=== PATIENT | male | born 1950 | race Caucasian/White ===

== ENCOUNTER → 2022-03-07 09:54 | Outpatient (BNVA) | payer MEDICARE, SELFPAY | PROVIDERS: PCP Internal Medicine; Visit Provider Psychiatry & Neurology Neurology | DX: G40.909 Epilepsy, unspecified, not intractable, without status epilepticus (principal); G93.81 Temporal sclerosis; G47.9 Sleep disorder, unspecified | CPT/HCPCS: 99202 ==

== ENCOUNTER → 2022-07-11 09:21 | Outpatient (BNVA) | payer MEDICARE, SELFPAY | PROVIDERS: PCP Internal Medicine; Visit Provider Psychiatry & Neurology Neurology | DX: G40.909 Epilepsy, unspecified, not intractable, without status epilepticus (principal); G93.81 Temporal sclerosis; G47.9 Sleep disorder, unspecified | CPT/HCPCS: 99212 ==

== ENCOUNTER → 2022-08-04 09:29 | Outpatient (REF) | payer MEDICARE, SELFPAY | LOC: HO.SL 09:29 | PROVIDERS: Visit Provider Psychiatry & Neurology Neurology | DX: G47.10 Hypersomnia, unspecified (principal); R06.83 Snoring | CPT/HCPCS: 95806 ==

== ENCOUNTER → 2022-10-13 08:59 | Outpatient (BNVA) | payer MEDICARE, SELFPAY | PROVIDERS: PCP Internal Medicine; Visit Provider Psychiatry & Neurology Neurology | DX: G40.909 Epilepsy, unspecified, not intractable, without status epilepticus (principal); G93.81 Temporal sclerosis; G47.33 Obstructive sleep apnea (adult) (pediatric); Z99.89 Dependence on other enabling machines and devices | CPT/HCPCS: 99212 ==

== ENCOUNTER 2023-02-16 10:23 | Outpatient (AMB) | payer MEDICARE, SELFPAY ==
--- NOTE | 2023-02-16 10:26 | A.OFFVIS_ITS ---
Intake Vital Signs 02/16/23 10:32 Weight 184 lb 4 oz BP 122/88 Blood Pressure Location Rt brachial Position Sitting Pulse 100 Pulse Source Pulse Oximeter Pulse Oximetry (%) 96 Oxygen Delivery Method Room Air Intake Visit Reasons: 4m follow up Seizure disorder-lvm Intake Note: F/U Seizures Automobile Parker Required: No Allergies No Known Allergies Allergy (Verified 02/16/23 10:26) Medication List - Last Reconciled 02/16/23 by Lenora Dillon MD levetiracetam 750 mg PO BID mecobalamin (vitamin B12) 1,000 mcg PO DAILY melatonin 5 mg PO BEDTIME PRN HPI HPI Comments History of Present Illness Details 72y/o male comes for follow up of seizur e disorder.No seizures last seizure was 18 mths ago. 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 He drinks rarely - every 3 weeks . everytime he drinks has an episode of confusion. when he was drinking he could not sleep and he had memory issues His sleep study is c/w severe sleep apnea 59/hr O2 willa 85%.He is on CPAP and he is complaint and feels better. His first seizure was in 1969- unresponsiveness and ? complex partial seizure with retrograde amnesia. He is not clear if he was started on treatment. He was told that it related to head injury at age 8 . SInce then he has had 5-6 seizures and all were relates to patient stopping his antiepileptic. He is on levetiracetam 750mg bid now. His last seizure was in July 2021 - stopped meds in Apr 2021. He has prolonged short term memory issues after his seizures. He drives now. He lives with his son and a friend. He has short term memory issues. [facility] Medical History Anxiety ALEXIA on CPAP Hypersomnia Snoring Mesial temporal sclerosis Seizure disorder Hyperlipidemia GERD (gastroesophageal reflux disease) Depression Surgical History H/O colonoscopy Family History Family/Other Blindness Cataract Glaucoma Macular degeneration Strabismus Family/Other No problems noted. Social History Alcohol intake: never Patient Tobacco Use Status: Never used Tobacco Use of substances other than those prescribed or required for medical reasons: No Physical Exam Vital Signs: Last Vital Signs Pulse 100 02/16/23 10:32 BP 122/88 02/16/23 10:32 Pulse Ox 96 02/16/23 10:32 Oxygen Delivery Method Room Air 02/16/23 10:32 Const Orientation/consciousness: patient oriented x3 Eyes Pupils: Equal, round and reactive pupils present Neuro General: patient oriented x3, No gait normal, tone normal, moves all extremities and no focal motor deficits Cranial nerves: Yes CN's II-XII intact bilaterally, Yes Equal, round and reactive pupils present, Yes Bilaterally intact EOM present, Yes Nystagmus not present, Yes Normal facial strength present, Yes Midline tongue present, Yes Symmetric palate elevation present and Yes Ability to bilaterally elevate shoulders present Cognition (Neuro): normal cognition (MMSE 28/30) Gait exam (Neuro): Normal gait present Assessment & Plan Assessment & Plan (1) Seizure disorder: Code(s): G40.909 - Epilepsy, unspecified, not intractable, without status epilepticus (2) Mesial temporal sclerosis: Code(s): G93.81 - Temporal sclerosis (3) ALEXIA on CPAP: Comment: AHI 59/hr O2 willa 85% Code(s): G47.33 - Obstructive sleep apnea (adult) (pediatric); Z99.89 - Dependence on other enabling machines and devices Plan Discussed compliance with medications Levetiracetam 750mg bid Compliance stressed with CPAP and medications Suggested therapy for anxiety- declines Coding Level of Care Code Est Pt Level 4 (25283) Diagnoses Seizure disorder G40.909 Mesial temporal sclerosis G93.81 ALEXIA on CPAP G47.33; Z99.89
[2023-02-16 10:32] VITALS: BP 122/88; PULSE 100; O2SAT 96
== END 2023-02-16 10:48 | disposition home or self-care (01) ==
PROVIDERS: Visit Provider Psychiatry & Neurology Neurology
DX: G40.909 Epilepsy, unspecified, not intractable, without status epilepticus (principal); G93.81 Temporal sclerosis; G47.33 Obstructive sleep apnea (adult) (pediatric); Z99.89 Dependence on other enabling machines and devices
CPT/HCPCS: 99214

== ENCOUNTER → 2023-02-16 10:23 | Outpatient (BNVA) | payer MEDICARE, SELFPAY | PROVIDERS: Visit Provider Psychiatry & Neurology Neurology | DX: G40.909 Epilepsy, unspecified, not intractable, without status epilepticus (principal); G93.81 Temporal sclerosis; G47.33 Obstructive sleep apnea (adult) (pediatric); Z99.89 Dependence on other enabling machines and devices | CPT/HCPCS: 99212 ==

== ENCOUNTER 2024-01-19 08:58 | Outpatient (AMB) | payer MEDICARE, SELFPAY ==
--- NOTE | 2024-01-19 09:00 | MHC.OFFVIS ---
Vital Signs 01/19/24 09:02 Height 5 ft 6 in Weight 178 lb 6 oz BMI 28.8 BP 122/78 Blood Pressure Location Rt brachial Position Sitting Respiration 17 Pulse 71 Pulse Source Pulse Oximeter Pulse Oximetry (%) 97 Oxygen Delivery Method Room Air Intake Visit Reasons: Follow Up- Confirmed Intake Note: Pt presents to the office for a one year follow up for Mesial temporal sclerosis. Beamer Operator Required: No Allergies No Known Allergies Allergy (Verified 01/19/24 09:00) Medication List - Last Reconciled 01/19/24 by Lenora Dillon MD amlodipine 5 mg PO DAILY atorvastatin 80 mg PO DAILY cholecalciferol (vitamin D3) 50 mcg PO DAILY finasteride 5 mg PO DAILY levetiracetam 750 mg PO BID mecobalamin (vitamin B12) 1,000 mcg PO DAILY melatonin 5 mg PO BEDTIME PRN metoprolol succinate ER 25 mg PO BID tamsulosin 0.4 mg PO DAILY HPI Comments Details: 73y/o male comes for follow up of seizure disorder.No seizures since last visit 11 months ago He is compliant with medications. 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 everytime he drinks has an episode of confusion. when he was drinking he could not sleep and he had memory issues His sleep study is c/w severe sleep apnea 59/hr O2 willa 85%.He is on CPAP and he is complaint and feels better. His first seizure was in 1969- unresponsiveness and ? complex partial seizure with retrograde amnesia. He is not clear if he was started on treatment. He was told that it related to head injury at age 8 . SInce then he has had 5-6 seizures and all were relates to patient stopping his antiepileptic. He is on levetiracetam 750mg bid now. His last seizure was in July 2021 - stopped meds in Apr 2021. He has prolonged short term memory issues after his seizures. He drives now. He lives with his son and a friend. He has short term memory issues. [facility] Medical History (Updated 01/19/24 @ 09:27 by Lenora Dillon MD) Renal failure Anxiety ALEXIA on CPAP Hypersomnia Snoring Mesial temporal sclerosis Seizure disorder Hyperlipidemia GERD (gastroesophageal reflux disease) Depression Surgical History H/O colonoscopy Family History Family/Other Blindness Cataract Glaucoma Macular degeneration Strabismus Family/Other No problems noted. Social History Alcohol intake: never Patient Tobacco Use Status: Never used Tobacco Physical Exam Vital Signs: Last Vital Signs Pulse 71 01/19/24 09:02 Resp 17 01/19/24 09:02 BP 122/78 01/19/24 09:02 Pulse Ox 97 01/19/24 09:02 Oxygen Delivery Method Room Air 01/19/24 09:02 BMI result Body Mass Index 28.8 Const Orientation/consciousness: patient oriented x3 Eyes Pupils: Equal, round and reactive pupils present Neuro General: patient oriented x3, No gait normal, tone normal, moves all extremities and no focal motor deficits Cranial nerves: Yes CN's II-XII intact bilaterally, Yes Equal, round and reactive pupils present, Yes Bilaterally intact EOM present, Yes Nystagmus not present, Yes Normal facial strength present, Yes Midline tongue present, Yes Symmetric palate elevation present and Yes Ability to bilaterally elevate shoulders present Cognition (Neuro): normal cognition (MMSE 28/30) Gait exam (Neuro): Normal gait present Assessment & Plan Assessment & Plan (1) Seizure disorder: Code(s): G40.909 - Epilepsy, unspecified, not intractable, without status epilepticus Category: Medical (2) Mesial temporal sclerosis: Code(s): G93.81 - Temporal sclerosis Category: Medical (3) ALEXIA on CPAP: Comment: AHI 59/hr O2 willa 85% Code(s): G47.33 - Obstructive sleep apnea (adult) (pediatric); Z99.89 - Dependence on other enabling machines and devices Category: Medical Plan Discussed compliance with medications Levetiracetam 750mg bid Compliance stressed with CPAP and medications Suggested therapy for anxiety- declines Medications: Refilled levetiracetam 750 mg PO BID 180 tabs 7RF Coding Level of Care Code Est Pt Level 4 (15112) Complex EM visit Add On G2211 Diagnoses Seizure disorder G40.909 Mesial temporal sclerosis G93.81 ALEXIA on CPAP G47.33; Z99.89
[2024-01-19 09:02] VITALS: BP 122/78; PULSE 71; RESP 17; O2SAT 97; BMI 28.8
== END 2024-01-19 09:33 | disposition home or self-care (01) ==
PROVIDERS: PCP Internal Medicine; Visit Provider Psychiatry & Neurology Neurology
DX: G40.909 Epilepsy, unspecified, not intractable, without status epilepticus (principal); G93.81 Temporal sclerosis; G47.33 Obstructive sleep apnea (adult) (pediatric); Z99.89 Dependence on other enabling machines and devices
CPT/HCPCS: 99214; G2211

== ENCOUNTER → 2024-01-19 08:58 | Outpatient (BNVA) | payer MEDICARE, SELFPAY | PROVIDERS: PCP Internal Medicine; Visit Provider Psychiatry & Neurology Neurology | DX: G40.909 Epilepsy, unspecified, not intractable, without status epilepticus (principal); G93.81 Temporal sclerosis; G47.33 Obstructive sleep apnea (adult) (pediatric); Z99.89 Dependence on other enabling machines and devices | CPT/HCPCS: 99212 ==

== ENCOUNTER 2025-01-16 08:56 | Outpatient (AMB) | payer MEDICARE, SELFPAY ==
--- NOTE | 2025-01-16 09:01 | MHC.OFFVIS ---
Vital Signs 01/16/25 09:02 Height 5 ft 6 in Weight 191 lb 6 oz BMI 30.9 BP 118/76 Blood Pressure Location Rt brachial Position Sitting Pulse 108 H Pulse Source Pulse Oximeter Pulse Oximetry (%) 96 Oxygen Delivery Method Room Air Intake Visit Reasons: Follow Up Intake Note: Follow up Mesial temporal sclerosis and Seizures Flight Attendant/Inflight Manager Required: No Accompanied by: Son Allergies No Known Allergies Allergy (Verified 01/16/25 09:02) Medication List - Last Reconciled 01/16/25 by Lenora Dillon MD amlodipine 5 mg PO DAILY atorvastatin 80 mg PO DAILY cholecalciferol (vitamin D3) 50 mcg PO DAILY finasteride 5 mg PO DAILY levetiracetam 750 mg PO BID mecobalamin (vitamin B12) 1,000 mcg PO DAILY metoprolol succinate ER 25 mg PO BID HPI Comments Details: 74y/o male comes for follow up of seizure disorder.No seizures since last visit .Last seizure was in 2022 He is compliant with medications. 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 everytime he drinks has an episode of confusion. when he was drinking he could not sleep and he had memory issues He does not drink anymore His sleep study is c/w severe sleep apnea 59/hr O2 willa 85%.He is on CPAP and he is complaint and feels better. His first seizure was in 1969- unresponsiveness and ? complex partial seizure with retrograde amnesia. He is not clear if he was started on treatment. He was told that it related to head injury at age 8 . SInce then he has had 5-6 seizures and all were related to patient stopping his antiepileptic. He is on levetiracetam 750mg bid now. His last seizure was in July 2021 - stopped meds in Apr 2021. He has prolonged short term memory issues after his seizures. He drives now. He lives with his son and a friend. He has short term memory issues. [facility] Medical History Renal failure Anxiety ALEXIA on CPAP Hypersomnia Snoring Mesial temporal sclerosis Seizure disorder Hyperlipidemia GERD (gastroesophageal reflux disease) Depression Surgical History H/O colonoscopy Family History Family/Other Blindness Cataract Glaucoma Macular degeneration Strabismus Family/Other No problems noted. Social History Alcohol intake: never Patient Tobacco Use Status: Never used Tobacco Physical Exam Vital Signs: Last Vital Signs Pulse 108 H 01/16/25 09:02 BP 118/76 01/16/25 09:02 Pulse Ox 96 01/16/25 09:02 Oxygen Delivery Method Room Air 01/16/25 09:02 BMI result Body Mass Index 30.9 Const Orientation/consciousness: patient oriented x3 Eyes Pupils: Equal, round and reactive pupils present Neuro General: patient oriented x3, No gait normal, tone normal, moves all extremities and no focal motor deficits Cranial nerves: Yes CN's II-XII intact bilaterally, Yes Equal, round and reactive pupils present, Yes Bilaterally intact EOM present, Yes Nystagmus not present, Yes Normal facial strength present, Yes Midline tongue present, Yes Symmetric palate elevation present and Yes Ability to bilaterally elevate shoulders present Gait exam (Neuro): Normal gait present Assessment & Plan Assessment & Plan (1) Seizure disorder: Code(s): G40.909 - Epilepsy, unspecified, not intractable, without status epilepticus Category: Medical (2) Mesial temporal sclerosis: Code(s): G93.81 - Temporal sclerosis Category: Medical (3) ALEXIA on CPAP: Comment: AHI 59/hr O2 willa 85% Code(s): G47.33 - Obstructive sleep apnea (adult) (pediatric); Z99.89 - Dependence on other enabling machines and devices Category: Medical Plan Discussed compliance with medications Levetiracetam 750mg bid Compliance stressed with CPAP and medications Suggested therapy for anxiety- declines Medications: Refilled levetiracetam 750 mg PO BID 180 tabs 7RF Coding Level of Care Code Est Pt Level 4 (99372) Complex EM visit Add On G2211 Diagnoses Seizure disorder G40.909 Mesial temporal sclerosis G93.81 ALEXIA on CPAP G47.33; Z99.89
[2025-01-16 09:02] VITALS: BP 118/76; PULSE 108; O2SAT 96; BMI 30.9
--- OUTSIDE RECORDS SUMMARY | 2025-01-16 09:57 | XMS_ITS | Clinical Summary ---
Author Organization [facility] Address [address] [place] [phone] Phone Care Team Providers Care Beer Coil Cleaner Name Role Phone Dario Medina MD Primary Care Provider [phone] Allergies Active Allergy Reactions Criticality Noted Date Comments Ceftriaxone Rash Low 12/28/2023 Medications amLODIPine (NORVASC) 5 MG tablet Take 1 tablet by mouth 1 (one) time each day 4 Active atorvastatin (LIPITOR) 80 MG tablet Take 1 tablet by mouth 1 (one) time each day 4 Active cyanocobalamin (VITAMIN B-12) 1000 MCG tablet Take 1 tablet by mouth 1 (one) time each day 0 Active levETIRAcetam (KEPPRA) 750 MG tablet Take 750 mg by mouth Active finasteride (PROSCAR) 5 MG tablet Take 1 tablet by mouth at bed time 4 Active metoprolol tartrate 25 MG tablet Take 1 tablet by mouth in the morning and 1 tablet in the evening. 4 Active tamsulosin (FLOMAX) 0.4 MG 24 hr capsule Take 0.4 mg by mouth 1 (one) time each day in the evening 4 Active ergocalciferol 1.25 MG (49117 UT) capsule TAKE 1 CAPSULE BY MOUTH 1 TIME EVERY WEEK 13 capsule 1 5 Active ergocalciferol 1.25 MG (19514 UT) capsule TAKE 1 CAPSULE BY MOUTH 1 TIME EVERY WEEK 13 capsule 1 5 12/31/19 25 Discontinued Active Problems Problem Noted Date Diagnosed Date Anemia in chronic kidney disease 06/19/2024 Vitamin D deficiency, not otherwise specified Chronic kidney disease, stage 4 (severe) 024 Acute nontraumatic kidney injury 09/15/2023 Lower urinary tract obstructive syndrome 024 Hypertensive chronic kidney disease 09/15/2023 Benign prostatic hyperplasia with outflow obstru ction 09/15/2023 Primary hypertension 09/05/2023 Prediabetes 08/16/2021 Overview (09/15/2023): A1c = 6.0 on 08/16/21 Hypertriglyceridemia 02/19/2013 Encounters Date Type Department Care Team Description 12/27/2024 Refill [facility] [address] [place] [phone] Rodrigo Cline MD from Last 3 Months Immunizations Immunization Administration Dates Next Due Influenza (IM) Preservative Free 01/31/2020,02/26 Influenza Split High Dose Pr eservative Free IM 03/04/2022,08/12/2021,03/22/2019,03/14 Influenza, Quadrivalent, Pre servative Free 02/03/2015 Influenza, Trivalent, Adjuvanted 03/06/2024,02/26 Moderna SARS-COV-2 08/06/2021,10/28/2020, 021 Pneumococcal Conjugate 13-Valent 01/31/2020 Pneumococcal Polysaccharide 08/12/2021 Shingrix 03/22/2019 Td, Unspecified 12/03/2001 Tdap 02/19/2013 Social History Tobacco Use Types Packs/Day Years Used Date Smoking Tobacco: Never Smokeless Tobacco: Never Tobacco Cessation:Counseling Given: No Alcohol Use Standard Drinks/Week Comments Yes 1 (1 standard drink = 0.6 oz pur e alcohol) Sex and Gender Information Value Date Recorded Sex Assigned at Not on file Legal Sex Male 7:55 AM EDT Gender Identity Not on file Sexual Orientation Not on file Last Filed Vital Signs Vital Sign Reading Time Taken Comments Blood Pressure 130/78 09/16/2024 3:46 PM EDT Pulse 87 09/16/2024 3:46 PM EDT Temperature - - Respiratory Rate - - Oxygen Saturation 99% 09/16/2024 3:46 PM EDT Inhaled Oxygen Concentration - - Weight 88.8 kg (195 lb 12.8 oz) 09/16/2024 3:46 PM EDT Height - - Body Mass Index - - Plan of Treatment Upcoming Encounters Date Type Department Care Team (Late st Contact Info) Description 02/10/2025 Orders Only [facility] [address] [phone] Rodrigo Cline MD [address] [place] [phone] Chronic kidney disease, stage 4 (severe) (HCC); Hypertensive chronic kidney disease; Benign prostatic hyperplasia with outflow obstruction 03/24/2025 3:15 PM EDT Office Visit [facility] [address] [phone] Rodrigo Cline MD [address] [place] [phone] Health Maintenance Due Date Last Done Comments Colorectal Cancer Screening: Annual FOBT 2001 Colorectal Cancer Screening: Colonoscopy 2001 Colorectal Cancer Screening: Sigmoidoscopy 2001 Influenza Vaccine (#1) 2025 4, 03/04/2022, 08/12/2021, Additional history exists Pneumococcal Vaccine: 50+ Years Completed 08/12/2021, 01/31/2020 Hepatitis B Vaccine Aged Out No longe r eligible based on patient's age to complete this topic Insurance Medicare Medicare [facility] Care Teams Beer Coil Cleaner Relationship Specialty Start Date End Date Dario Medina MD [address] [place] [id number] PCP - General Internal Medicine 08/15/23
--- OUTSIDE RECORDS SUMMARY | 2025-01-16 09:57 | XMS_ITS ---
Author Name [facility] Organization Unknown Care Team Organization Name Specialty Phone Email Start Date End Da te [facility] 01/15/2025 [facility] Dario Medina Primary Care 11/04/2022 01/15/20 24
--- OUTSIDE RECORDS SUMMARY | 2025-01-16 09:57 | XMS_ITS | Clinical Summary ---
Author Organization [address] Address [address] [place] [address] Phone Care Team Providers Care Cost Control Supervisor Name Role Phone Dario Medina MD Primary Care Provider [phone] Allergies Active Allergy Reactions Criticality Noted Date Comments Ceftriaxone Rash Low 12/28/2023 Medications cyanocobalamin (VITAMIN B-12) 1,000 mcg tablet Take 1 tablet (1,000 mcg total) by mouth. 0 Active ergocalciferol (VITAMIN D-2) 1,250 mcg (50,000 unit) capsule Take 1 capsule (50,000 Units total) by mouth 1 (one) time per week. 5 Active levETIRAcetam (KEPPRA) 750 mg tablet Take 1 tablet (750 mg total) by mouth 2 (two) times a day. Active tamsulosin (FLOMAX) 0.4 mg 24 hr capsule Take 1 capsule (0.4 mg total) by mouth. 4 Active amLODIPine (NORVASC) 5 mg tablet TAKE 1 TABLET BY MOUTH DAILY 90 tablet 1 5 Active finasteride (PROSCAR) 5 mg tablet TAKE 1 TABLET BY MOUTH AT BEDTIME 90 tablet 5 Active atorvastatin (LIPITOR) 80 mg tablet TAKE 1 TABLET BY MOUTH DAILY 90 tablet 5 Active metoprolol tartrate (LOPRESSOR) 25 mg tablet Take 1 tablet (25 mg total) by mouth 2 (two) times a day. 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 Nuclear sclerosis 10/06/2014 Hypertriglyceridemia 02/19/2013 Seizure disorder ([facility] V24, [facility] V28) 05/31 Depression 11/25/2008 Anxiety 04/07/2008 Immunizations Name Administration Dates Next Due Influenza Quadrivalent, 0.5m l, preservative free (Fluarix; FluLaval; Fluzone) ages 6mo and older (Afluria) 3yo and older 02/03/2015 Influenza trivalent, 0.5mL ( Fluad) 65yo and older 03/06/2024,03/14/2018 Influenza trivalent, 0.5mL ( Fluzone High-dose) 65yo and older 03/04/2022,08/12/2021,03/22/2019 Influenza trivalent, 0.5mL, preservative free (Fluarix; FluLaval; Fluzone) ages 6mo and older (Afluria) 3 years and older 01/31/2020,03/14/2011 Influenza trivalent, with pr eservative (Fluzone; Afluria) 6mo and older 02/19/2013,05/30/2006 Pneumococcal conjugate 13 va lent (Prevnar 13, PCV13) 2mo and older 01/31/2020 Pneumococcal polysaccharide 23 valent (Pneumovax 23) 2yo and older 08/12/2021 Td, Unspecified 12/03/2001 Tdap Tetanus diptheria acell ular pertussis (Boostrix; Adacel) 7yo and older 02/19/2013 Zoster recombinant (Shingrix ) 19yo and older 03/22/2019 Surgical History Surgery Date Site/Laterality Comments COLONOSCOPY 03/16/09 PROCEDURE: HISTORICAL COLONOSCOPY; COMMENT: normal; repeat in ten years Medical History Medical History Date Comments Esophageal reflux DX:Esophageal reflux Anatomical narrow angle 10/06/2014 DX:Anato mical narrow angle Seizure disorder (CMS/HCC V2 4, CMS/HCC V28) 06/28/2011 DX:Seizure disorder (HCC) Pre-diabetes 08/16/2021 DX:Pre-diabetes; COMMENT: A1c = 6.0 on 08/16/21 Primary hypertension 09/05/2023 DX:Primary hypertension Primary hypertension 09/05/2023 Family History Medical History Relation Name Comments Blindness Neg Hx Cataracts Neg Hx Glaucoma Neg Hx Macular degeneration Neg Hx Strabismus Neg Hx Relation Name Status Comments Father Mother Alive dementia Social History Tobacco Use Types Packs/Day Years Used Date Smoking Tobacco: Never Smokeless Tobacco: Never Tobacco Cessation:Counseling Given: Not Answered Alcohol Use Standard Drinks/Week Comments No 0 (1 standard drink = 0.6 oz pur e alcohol) Sex and Gender Information Value Date Recorded Sex Assigned at Male 07/23/2024 4:44 PM EST Legal Sex Male 3:36 AM EST Gender Identity Male 07/23/2024 4:44 PM EST Sexual Orientation Straight 07/23/2024 4: 44 PM EST Obstetrics History Last Filed Vital Signs Vital Sign Reading Time Taken Comments Blood Pressure 122/76 08/12/2024 10:22 AM EDT Pulse 75 08/12/2024 10:22 AM EDT Temperature 36.6 C (97.9 F) 07/23/2024 4:11 PM EST Respiratory Rate 18 07/23/2024 4:11 PM EST Oxygen Saturation 96% 07/23/2024 4:11 PM EST Inhaled Oxygen Concentration - - Weight 89 kg (196 lb 1.6 oz) 08/12/2024 10:22 AM EDT Height 175.3 cm (5' 9 ) 08/12/2024 10:22 AM EDT Body Mass Index 28.96 08/12/2024 10:22 AM EDT Plan of Treatment Health Maintenance Due Date Last Done Comments Zoster Vaccines (2 of 2) 05/17/2019 03/22/2019 Falls Risk Assessment 05/07/2022 Hepatitis C Screening 05/07/2022 Medicare Annual Wellness Visit 05/07/2022 Social Influencers of Health Screening 05/07/2022 DTaP,Tdap,and Td Vaccines (3 - Td or Tdap) 02/19/2023 02/19/2013, 12/03/2001 COVID-19 Vaccine (4 - season) 2024 08/06/2021, 10/28/2020, 09/30/2020 Depression Screening 05/29/2024 Influenza Vaccine (#1) 2025 , 03/04/2022, 08/12/2021, Additional history exists Hypertension/CHF/CAD Annual BMP Blood Test 09/06/2025 09/06/2024, 05/14/2024, 03/04/2022 RSV Immunization Adult Patients (1 - 1-dose 75+ series) 08/06/2027 Cholesterol Screening (Lipid Panel) 03/06/2029 03/06/2024, 03/06/2024 Colorectal Cancer Screening: Colonoscopy 07/08/2029 07/08/2019 Pneumococcal Vaccine: 50+ Years Completed 08/12/2021, 01/31/2020 HIB Vaccines Aged Out No longer eligi ble based on patient's age to complete this topic HPV Vaccines Aged Out No longer eligi ble based on patient's age to complete this topic Hepatitis A Vaccines Aged Out No long er eligible based on patient's age to complete this topic Hepatitis B Vaccines Aged Out No long er eligible based on patient's age to complete this topic IPV Vaccines Aged Out No longer eligi ble based on patient's age to complete this topic MMR Vaccines Aged Out No longer eligi ble based on patient's age to complete this topic Meningococcal ACWY Vaccine Aged Out N o longer eligible based on patient's age to complete this topic Meningococcal B Vaccine Aged Out No l onger eligible based on patient's age to complete this topic RSV Immunization Patients Under 20 months Aged Out No longer eligible based on patient's age to complete this topic Varicella Vaccines Aged Out No longer eligible based on patient's age to complete this topic Procedures Procedure Name Priority Date/Time Associated Diagnosis Comments RENAL FUNCTION PANEL Routine 09/06/2024 4:41 PM EDT Anemia in chronic kidney disease (CKD) LIPID PANEL Routine 03/06/2024 HM COLONOSCOPY Routine 07/08/2019 from Last 3 Months or Most Recently Relevant to Health Maintenance Results * (ABNORMAL) Renal function panel (09/06/2024 4:41 PM EDT) Sodium 143 133 - 145 mmol/L LAB CHEMISTRY METHOD 09/06/2024 6:44 PM [facility] Potassium 4.4 3.5 - 5.5 mmol/L LAB CHEMISTRY METHOD 09/06/2024 6:44 PM [facility] Chloride 109 96 - 110 mmol/L LAB CHEMISTRY METHOD 09/06/2024 6:44 PM [facility] CO2 26 21 - 32 mmol/L LAB CHEMISTRY METHOD 09/06/2024 6:44 PM [facility] Anion Gap 8 3 - 11 LAB CHEMISTRY METHOD 09/06/2024 6:44 PM [facility] Glucose 180(H) 70 - 100 mg/dL LAB CHEMISTRY METHOD 09/06/2024 6:44 PM [facility] BUN 23 5 - 25 mg/dL LAB CHEMISTRY METHOD 09/06/2024 6:44 PM [facility] Creatinine 2.76(H) 0.70 - 1.30 mg/dL LAB CHEMISTRY METHOD 09/06/2024 6:44 PM [facility] eGFR 24(L) >=60 mL/min/1. 73m2 LAB CHEMISTRY METHOD 09/06/2024 6:44 PM [facility] Comment:Calculation based on the Chronic Kidney Disease Epidemiology Collaboration (CKD-EPI) equation refit without adjustment for race. BUN/Creatinine Ratio 8.3 LAB CHEMISTRY METHOD 09/06/2024 6:44 PM [facility] Albumin 3.9 3.2 - 5.0 g/dL LAB CHEMISTRY METHOD 09/06/2024 6:44 PM EDT [facility] Calcium 9.0 8.5 - 10.5 mg/dL LAB CHEMISTRY METHOD 09/06/2024 6:44 PM EDT [facility] Phosphorus 3.3 2.5 - 4.5 mg/dL LAB CHEMISTRY METHOD 09/06/2024 6:44 PM EDT [facility] Blood Venous blood specimen / Unknown Venipuncture / Unknown 09/06/2024 4:41 PM EDT 09/06/2024 4:42 PM EDT Jaimie THORNTONP LAB BLOOD ORDERABLES Final R esult [facility] [address] [place] [address], * (ABNORMAL) Lipid panel (03/06/2024) LDL/HDL Ratio 3 0 - 4 Triglycerides 243(A) 0 - 150 mg/dL Cholesterol 115 0 - 200 mg/dL HDL 47 >=40 mg/dL LDL Cholesterol 20 0 - 100 mg/dL Blood Venous blood specimen / Unknown Historical Provider LAB BLOOD ORDERABLES Brittni l Result * Colonoscopy (07/08/2019) Colonoscopy No interpreta tion,abstr acted Anatomical Region Laterality Modality Other Historical Provider HEALTH MAINTENANCE Final Result from Last 3 Months or Most Recently Relevant to Health Maintenance Insurance MEDICARE [facility] Advance Directives Documents on File Type Date Recorded 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
== END 2025-01-16 09:22 | disposition home or self-care (01) ==
LOC: HO.HSMS 08:57
PROVIDERS: PCP Internal Medicine; Visit Provider Psychiatry & Neurology Neurology
DX: G40.909 Epilepsy, unspecified, not intractable, without status epilepticus (principal); G93.81 Temporal sclerosis; G47.33 Obstructive sleep apnea (adult) (pediatric); Z99.89 Dependence on other enabling machines and devices
CPT/HCPCS: 99214; G2211

== ENCOUNTER → 2025-01-16 08:56 | Outpatient (BNVA) | payer MEDICARE, OTHER, SELFPAY | PROVIDERS: PCP Internal Medicine; Visit Provider Psychiatry & Neurology Neurology | DX: G93.81 Temporal sclerosis (principal); G40.909 Epilepsy, unspecified, not intractable, without status epilepticus; G47.33 Obstructive sleep apnea (adult) (pediatric); Z99.89 Dependence on other enabling machines and devices; Z79.899 Other long term (current) drug therapy | CPT/HCPCS: 99212 ==